=== PATIENT | male | born 1950 | race Caucasian/White ===

== ENCOUNTER 2018-10-23 14:34 | Emergency (ER) | payer MEDICARE, MEDICAID ==
[~2018-10-23] VITALS: Ht 167.6 cm; Wt 81.6 kg
--- NOTE | 2018-10-23 15:11 | NUR ---
Peripheral lab draw done.
--- NOTE | 2018-10-23 15:15 | NUR ---
Doppled pt's dorsalis pedis and pedal pulse with soft weak sounding pulses r/t excessive edema and skin tightness. Incidental find of a very small seed tick embedded on the right lower extremity anterior to medial ankle bone. Pt was unaware of it's presence. Notified the Dr. RN removed tick by applying an alcohol wipe on it and gentle tug. The tick remains alive and appears all intact including its head and disposed of it.
[2018-10-23 16:28] LABS: HEMOGLOBIN 15.2 G/DL (13.3-17.7); WHITE BLOOD COUNT 10.3 10^3/uL (4.3-11.0)
[2018-10-23 16:29] LABS: MEAN PLATELET VOLUME 9.8 FL (7.4-10.4)
[2018-10-23 16:41] LABS: PROTHROMBIN TIME PATIENT 13.3 SEC (12.2-14.7)
[2018-10-23] MEDS ORDERED: CLINDAMYCIN 150 MG (CLEOCIN) CAP PO ONE (16:45)
--- NOTE | 2018-10-23 16:49 | ED Lower Extremity ---
General Chief Complaint: Lower Extremity Stated Complaint: RT LEG SWELLING Nursing Triage Note: Pt to ED ambulatory reporting redness and swelling down right loer extremity with swelling of foot. Pt reports Sx started Sunday. Denies fever and chills Nursing Sepsis Screen: Possible Sepsis Risk Source: patient Exam Limitations: no limitations History of Present Illness Date Seen by Provider: Oct 23, 2018 Time Seen by Provider: 15:00 Initial Comments Patient is a 67-year-old male with history of coronary disease, chronic respiratory disease who presents with right lower extremity swelling extending from foot to distal thigh. Symptoms began 2 days ago and gradually worsening. Denies trauma injury to this region. Leg is swollen, erythematous and tender to palpation. This no skin breakdown, ulcers, weeping or induration. No fluctuance. Dorsal pedal and anterior tibial pulses are present. Patient ice fever chills, nausea vomiting or sweats. Denies history of DVT, PE. He is not currently on anticoagulation therapy. Denies history of cellulitis or MRSA. Onset: yesterday Pain/Injury Location: right leg, right knee, right thigh Modifying Factors: Improves With Rest Allergies and Home Medications Allergies Coded Allergies: No Known Drug Allergies (Unverified , 10/23/18) Patient Home Medication List Home Medication List Reviewed: Yes Review of Systems Constitutional: no symptoms reported Respiratory: no symptoms reported Cardiovascular: no symptoms reported Gastrointestinal: no symptoms reported Genitourinary: no symptoms reported Musculoskeletal: no symptoms reported Skin: see HPI Psychiatric/Neurological: No Symptoms Reported Past Fgrhcwb-Ekshqf-Yzxsml Hx Past Med/Social Hx: Reviewed Nursing Past Med/Soc Hx Patient Social History Alcohol Use: Denies Use Recreational Drug Use: No Smoking Status: Current Everyday Smoker Type Used: Cigarettes Recent Foreign Travel: No Contact w/Someone Who Travel: No Recent Infectious Disease Expo: No Recent Hopitalizations: No Physical Abuse: No Sexual Abuse: No Mistreated: No Fear: No Immunizations Up To Date Tetanus Booster (TDap): Unknown Seasonal Allergies Seasonal Allergies: No Past Medical History Surgeries: Yes Coronary Stent Respiratory: Yes (GENTILE) Chronic Bronchitis, COPD Cardiac: Yes (EF 52% 2018 studies) Coronary Artery Disease, High Cholesterol, Hypertension Neurological: No Genitourinary: No Gastrointestinal: No Musculoskeletal: Yes (Hx unilateral inguinal hernia) Endocrine: Yes Diabetes, Non-Insulin dep HEENT: No Cancer: No Psychosocial: No Integumentary: Yes (erythema and petechiae appearance RLE) Recent Skin Changes Blood Disorders: No Physical Exam Vital Signs Vital Signs - First Documented 10/23/18 14:40 Temp 97.7 Pulse 98 Resp 22 B/P (MAP) 134/65 (88) Pulse Ox 94 O2 Delivery Room Air Capillary Refill : Less Than 3 Seconds Height, Weight, BMI Height: 5'6.00" Weight: 180lbs. oz. 81.677151gm; BMI Method:Stated General Appearance: WD/WN, no apparent distress HEENT: PERRL/EOMI, normal ENT inspection Neck: supple Cardiovascular: normal peripheral pulses, regular rate, rhythm Respiratory: lungs clear, normal breath sounds Gastrointestinal: non tender, soft Legs: right leg pain, right leg soft tissue tenderness, right leg swelling Knees: right knee soft tissue tenderness, right knee swelling Neurologic/Tendon: normal sensation, normal motor functions Neurologic/Psychiatric: pan washer II-XII nml as tested, no motor/sensory deficits, alert, oriented x 3 Skin: rash Lymphatic: inguinal node tender (R) Progress/Results/Core Measures Results/Orders Lab Results Laboratory Tests Test 10/23/18 16:15 Range/Units White Blood Count 10.3 4.3-11.0 10^3/uL Red Blood Count 4.98 4.35-5.85 10^6/uL Hemoglobin 15.2 13.3-17.7 G/DL Hematocrit 46 40-54 % Mean Corpuscular Volume 92 80-99 FL Mean Corpuscular Hemoglobin 31 25-34 PG Mean Corpuscular Hemoglobin Concent 33 32-36 G/DL Red Cell Distribution Width 14.0 10.0-14.5 % Platelet Count 162 130-400 10^3/uL Mean Platelet Volume 9.8 7.4-10.4 FL Prothrombin Time 13.3 12.2-14.7 SEC INR Comment 1.0 0.8-1.4 My Orders Orders - ROBERTO ATWOOD DO Cbc No Diff (10/23/18 15:02) Comprehensive Metabolic Panel (10/23/18 15:02) Creatine Kinase (10/23/18 15:04) Protime With Inr (10/23/18 15:04) Probnp Fs (10/23/18 15:19) Hs C Reactive Protein (10/23/18 15:57) Blood Culture (10/23/18 15:57) Clindamycin Capsule (Cleocin Capsule) (10/23/18 16:45) Vital Signs/I&O 10/23/18 14:40 Temp 97.7 Pulse 98 Resp 22 B/P (MAP) 134/65 (88) Pulse Ox 94 O2 Delivery Room Air Blood Pressure Mean: 88 Departure Communication (Admissions) No evidence of DVT on outpatient US. Rash consistent with cellulitis. Patient afebrile with nl WBC. First dose of antibiotics given in the emergency department. Recommend watchful waiting, empiric treatment and close PCP follow- up. Return partially reviewed. Patient verbalizes understanding and agreement discharge instructions prior to departure. Impression Primary Impression: Cellulitis of right lower leg Disposition: HOME, SELF-CARE Condition: Stable/Unchanged Departure-Patient Inst. Decision time for Depature: 16:50 Patient Instructions: Cellulitis (Skin Infection), Adult (DC) Add. Discharge Instructions: Please keep leg elevated while at rest. Take antibiotics and pain medication as directed. Follow-up with your PCP in one to 2 days for reevaluation. Return to the ED if new or worsening symptoms All discharge instructions reviewed with patient and/or family. Voiced understanding. Scripts Tramadol HCl (Tramadol HCl) 50 Mg Tablet 100 MG PO Q6H PRN for PAIN for 3 Days, #15 TAB 0 Refills Prov: ROBERTO ATWOOD DO 10/23/18 Clindamycin HCl (Clindamycin HCl) 300 Mg Capsule 300 MG PO QID, #40 CAP Prov: ROBERTO ATWOOD DO 10/23/18 ROBERTO ATWOOD DO Oct 23, 2018 16:49
[2018-10-23] MEDS ORDERED: TRAM50TA2 PO (16:52)
[2018-10-23] MEDS ORDERED: CLIN300C11 PO (16:52)
[2018-10-23 16:55] LABS: CHLORIDE 92 MMOL/L (98-107); POTASSIUM 3.8 MMOL/L (3.6-5.0); SODIUM 135 MMOL/L (135-145)
[2018-10-23 16:56] LABS: ALANINE AMINOTRANSFERASE 29 U/L (0-55); ALBUMIN 3.7 GM/DL (3.2-4.5); ALKALINE PHOSPHATASE 102 U/L (40-136); BILIRUBIN,TOTAL 0.6 MG/DL (0.1-1.0); BUN/CREATININE RATIO 20; CALCIUM 9.1 MG/DL (8.5-10.1); CARBON DIOXIDE 28 MMOL/L (21-32); CREATININE SERUM 0.91 MG/DL (0.60-1.30); GFR ESTIMATED > 60; GLUCOSE 107 MG/DL (70-105); TOTAL PROTEIN 7.6 GM/DL (6.4-8.2)
[2018-10-23 17:19] VITALS: BP 131/62
--- NOTE | 2018-10-23 17:19 | NUR ---
Pt discharged to home at this time after review of discharge instructions. Pt verbalizes signs and sx of emergent need to return to ER or to return with any worsening sx and concerns. Pt reassured he will be notified if blood cultures become positive to do follow up on how his well being is if he hadn't returned to ED yet.
[2018-10-24 11:00] LABS: CREATINE KINASE 97 U/L (30-200)
== END 2018-10-23 17:19 | disposition home or self-care (01) ==
LOC: EDUNIT# 14:34 → ER FS 14:36
DX: L03.115 Cellulitis of right lower limb (principal); I25.10 Atherosclerotic heart disease of native coronary artery without angina pectoris; J98.9 Respiratory disorder, unspecified; J44.9 Chronic obstructive pulmonary disease, unspecified; I10 Essential (primary) hypertension; E78.00 Pure hypercholesterolemia, unspecified; E11.9 Type 2 diabetes mellitus without complications; F17.210 Nicotine dependence, cigarettes, uncomplicated; Z95.5 Presence of coronary angioplasty implant and graft
CPT/HCPCS: 36415; 80053; 82550; 83880; 85027; 85610; 86141; 87040

== ENCOUNTER → 2019-09-02 | Outpatient (CLI) | payer MEDICARE, MEDICAID ==
[~2019-09-02] MED LIST: CLIN300C11 PO; TRM50T PO
[2019-09-02 11:50] LABS: BILIRUBIN,TOTAL 0.4 MG/DL (0.1-1.0); BUN/CREATININE RATIO 10; CALCIUM 9.3 MG/DL (8.5-10.1); CARBON DIOXIDE 30 MMOL/L (21-32); CHLORIDE 102 MMOL/L (98-107); GFR ESTIMATED > 60; GLUCOSE 98 MG/DL (70-105); POTASSIUM 4.3 MMOL/L (3.6-5.0); SODIUM 141 MMOL/L (135-145)
[2019-09-02 11:51] LABS: ALANINE AMINOTRANSFERASE 13 U/L (0-55); ALBUMIN 3.9 GM/DL (3.2-4.5); ALKALINE PHOSPHATASE 121 U/L (40-136); TOTAL PROTEIN 6.9 GM/DL (6.4-8.2)
[2019-09-02 15:48] LABS: CHOLESTEROL 191 MG/DL (< 200); HDL CHOLESTEROL 27 MG/DL (40-60); TRIGLYCERIDES 293 MG/DL (<150); VLDL CHOLESTEROL 59 MG/DL (5-40)
== END ==
LOC: LAB FS 11:01
PROVIDERS: ATTEND Family Medicine
DX: I51.9 Heart disease, unspecified (principal)
CPT/HCPCS: 36415; 80053; 80061

== ENCOUNTER 2020-01-16 08:52 | Emergency (ER) | payer MEDICARE, MEDICAID ==
[~2020-01-16] VITALS: Ht 177.8 cm; Wt 99.2 kg
--- NOTE | 2020-01-16 09:07 | ED Respiratory ---
General Stated Complaint: RESP DIST Source: patient, EMS Exam Limitations: clinical condition History of Present Illness Date Seen by Provider: Jan 16, 2020 Time Seen by Provider: 08:50 Initial Comments The patient is a 69-year-old male who presents via EMS for evaluation of respiratory distress. The patient lives alone and was found by EMS to be saturating 70%, diaphoretic, tachycardic, and tripoding. He explained to them that he has a history of CHF. The patient was given topical nitroglycerin and IV Lasix and was placed on oxygen and improved significantly by the time they arrived in this emergency department. The patient denies any fever or chills, contact with anyone known to have coronavirus, loss of taste or smell, abdominal or back pain, chest pain, nausea or vomiting, or diarrhea. He has some pitting edema in his lower extremities. He is alert and oriented 4, somewhat anxious, in moderate respiratory distress upon arrival but no longer tripoding. He is saturating in the low 90s upon his arrival and his heart rate is in the 120-125 range. Timing/Duration: this morning Severity: severe Prior Episodes/Possible Cause: occasional episodes Modifying Factors: Improves With Oxygen (helps), Improves With Rest (helps) Associated Symptoms: shortness of breath Allergies and Home Medications Allergies Coded Allergies: No Known Drug Allergies (Unverified , 10/23/18) Home Medications Clindamycin HCl 300 Mg Capsule, 300 MG PO QID Prescribed by: ROBERTO ATWOOD on 10/23/181651 Tramadol HCl 50 Mg Tablet, 100 MG PO Q6H PRN for PAIN Prescribed by: ROBERTO ATWOOD on 10/23/18 165 Patient Home Medication List Home Medication List Reviewed: Yes Review of Systems Review of Systems Constitutional: no symptoms reported EENTM: no symptoms reported Respiratory: cough, short of breath Cardiovascular: edema Gastrointestinal: no symptoms reported Genitourinary: no symptoms reported Musculoskeletal: no symptoms reported Skin: no symptoms reported Psychiatric/Neurological: No Symptoms Reported Hematologic/Lymphatic: No Symptoms Reported Immunological/Allergic: no symptoms reported All Other Systems Reviewed Negative Unless Noted: Yes Past Jtrdhzd-Kbjent-Mkeqyo Hx Past Med/Social Hx: Reviewed Nursing Past Med/Soc Hx Patient Social History Type Used: Cigarettes Recent Hopitalizations: No Immunizations Up To Date Tetanus Booster (TDap): Unknown Seasonal Allergies Seasonal Allergies: No Past Medical History Surgeries: Yes Coronary Stent Respiratory: Yes (GENTILE) Chronic Bronchitis, COPD Cardiac: Yes (EF 52% 2018 studies) Coronary Artery Disease, High Cholesterol, Hypertension Neurological: No Genitourinary: No Gastrointestinal: No Musculoskeletal: Yes (Hx unilateral inguinal hernia) Endocrine: Yes Diabetes, Non-Insulin dep HEENT: No Cancer: No Psychosocial: No Integumentary: Yes (erythema and petechiae appearance RLE) Recent Skin Changes Blood Disorders: No Physical Exam Vital Signs - First Documented 01/16/20 01/16/20 09:10 09:20 Temp 35.8 Pulse 118 Resp 40 B/P (MAP) 161/74 (103) Pulse Ox 90 O2 Delivery Non Rebreather O2 Flow Rate 15.00 FiO2 60 Capillary Refill : Height: 5'6.00" Weight: 180lbs. oz. 81.880408iv; BMI Method:Stated General Appearance: WD/WN, moderate distress (moderate respiratory distress upon arrival) Eyes: Bilateral Eye Normal Inspection, Bilateral Eye PERRL, Bilateral Eye EOMI HEENT: PERRL/EOMI, pharynx normal Neck: full range of motion, supple Respiratory: chest non-tender; No normal breath sounds, No no respiratory distress; respiratory distress (moderate), crackles, rhonchi Cardiovascular: No no edema; tachycardia, other (3+ pitting edema) Gastrointestinal: normal bowel sounds, non tender, soft Extremities: non-tender, no calf tenderness, normal capillary refill, pedal edema Neurologic/Psychiatric: no motor/sensory deficits, alert, oriented x 3, other (mildly anxious) Skin: normal color, warm/dry Lymphatic: no adenopathy Focused Exam Lactate Level 01/16/20 08:58: Lactic Acid Level 4.98*H Lactic Acid Level Laboratory Tests Test 01/16/20 08:58 Lactic Acid Level 4.98 MMOL/L (0.50-2.00) *H Progress/Results/Core Measures Suspected Sepsis SIRS Temperature: Pulse: Respiratory Rate: Laboratory Tests 01/16/20 08:58: White Blood Count 16.9H Blood Pressure / Mean: 01/16/20 08:58: Lactic Acid Level 4.98*H Laboratory Tests 01/16/20 08:58: Creatinine 0.93, Platelet Count 195, Total Bilirubin 1.1H Results/Orders Lab Results Laboratory Tests Test 01/16/20 08:58 01/16/20 09:12 01/16/20 09:35 Range/Units White Blood Count 16.9 H 4.3-11.0 10^3/uL Red Blood Count 5.38 4.35-5.85 10^6/uL Hemoglobin 16.4 13.3-17.7 G/DL Hematocrit 53 40-54 % Mean Corpuscular Volume 99 80-99 FL Mean Corpuscular Hemoglobin 30 25-34 PG Mean Corpuscular Hemoglobin Concent 31 L 32-36 G/DL Red Cell Distribution Width 13.5 10.0-14.5 % Platelet Count 195 130-400 10^3/uL Mean Platelet Volume 10.4 7.4-10.4 FL Immature Granulocyte % (Auto) 1 % Neutrophils (%) (Auto) 84 H 42-75 % Lymphocytes (%) (Auto) 10 L 12-44 % Monocytes (%) (Auto) 6 0-12 % Eosinophils (%) (Auto) 0 0-10 % Basophils (%) (Auto) 0 0-10 % Neutrophils # (Auto) 14.1 H 1.8-7.8 X 10^3 Lymphocytes # (Auto) 1.6 1.0-4.0 X 10^3 Monocytes # (Auto) 1.0 0.0-1.0 X 10^3 Eosinophils # (Auto) 0.0 0.0-0.3 10^3/uL Basophils # (Auto) 0.0 0.0-0.1 10^3/uL Immature Granulocyte # (Auto) 0.1 0.0-0.1 10^3/uL Neutrophils % (Manual) 83 % Lymphocytes % (Manual) 10 % Monocytes % (Manual) 5 % Eosinophils % (Manual) 0 % Basophils % (Manual) 0 % Metamyelocytes % 0 % Myelocytes % 1 % Band Neutrophils 1 % Sodium Level 139 135-145 MMOL/L Potassium Level 4.4 3.6-5.0 MMOL/L Chloride Level 91 L 98-107 MMOL/L Carbon Dioxide Level 36 H 21-32 MMOL/L Anion Gap 12 5-14 MMOL/L Blood Urea Nitrogen 16 7-18 MG/DL Creatinine 0.93 0.60-1.30 MG/DL Estimat Glomerular Filtration Rate > 60 BUN/Creatinine Ratio 17 Glucose Level 188 H 70-105 MG/DL Lactic Acid Level 4.98 *H 0.50-2.00 MMOL/L Calcium Level 9.5 8.5-10.1 MG/DL Corrected Calcium 9.7 8.5-10.1 MG/DL Magnesium Level 2.0 1.6-2.4 MG/DL Total Bilirubin 1.1 H 0.1-1.0 MG/DL Aspartate Amino Transf (AST/SGOT) 21 5-34 U/L Alanine Aminotransferase (ALT/SGPT) 13 0-55 U/L Alkaline Phosphatase 162 H 40-136 U/L Troponin I 0.44 *H <0.30 NG/ML Pro-B-Type Natriuretic Peptide 5644.0 H <75.0 PG/ML Total Protein 7.2 6.4-8.2 GM/DL Albumin 3.7 3.2-4.5 GM/DL Blood Gas Puncture Site LT RADIAL Blood Gas Patient Temperature 35.8 Arterial Blood pH 7.19 *L 7.37-7.43 Arterial Blood Partial Pressure CO2 113 *H 35-45 MMHG Arterial Blood Partial Pressure O2 73 L 79-93 MMHG Arterial Blood HCO3 43 *H 23-27 MMOL/L Arterial Blood Total CO2 46.7 H 21.0-31.0 MMOL/L Arterial Blood Oxygen Saturation 90 L 94-100 % Arterial Blood Base Excess 10.8 H -2.5-2.5 MMOL/L Victor M Test OK Blood Gas Ventilator Setting NO Blood Gas Inspired Oxygen 60% BIPAP My Orders Orders - KAMI GAMBLE DO Cbc With Automated Diff (01/16/20 08:56) Comprehensive Metabolic Panel (01/16/20 08:56) Blood Culture (01/16/20 08:56) Chest 1 View Ap/Pa Only (01/16/20 08:56) Magnesium (01/16/20 08:56) Ekg Tracing (01/16/20 08:56) O2 (01/16/20 08:56) Ed Iv/Invasive Line Start (01/16/20 08:56) Monitor-Rhythm Ecg Trace Only (01/16/20 08:56) Lactic Acid Analyzer (01/16/20 08:56) Coronavirus Sars-Cov-2 So 2018 (01/16/20 08:56) Troponin I Fs (01/16/20 08:56) Probnp Fs (01/16/20 08:56) Bipap (Bilevel) Set Up (01/16/20 08:56) Arterial Blood Gas (01/16/20 08:56) Wire Inserter (01/16/20 08:56) Continuous Pulse Ox (01/16/20 08:56) Aspirin Chewable Tablet (Baby Aspirin Ch (01/16/20 09:15) Nitroglycerin 0.4 Mg Btl 25's (Nitrostat (01/16/20 09:15) Furosemide Injection (Lasix Injection) (01/16/20 09:15) Manual Differential (01/16/20 08:58) Vancomycin Injection (Vancomycin Injecti (01/16/20 10:00) Piperacillin Sodium/Tazobactam (Zosyn Vi (01/16/20 10:00) Medications Given in ED Current Medications Medications Dose Ordered Sig/Roberto Route Start Time Stop Time Status Last Admin Dose Admin Aspirin 324 mg ONCE ONCE PO 01/16/20 09:15 01/16/20 09:16 DC 01/16/20 09:22 324 MG Furosemide 40 mg ONCE ONCE IVP 01/16/20 09:15 01/16/20 09:16 DC 01/16/20 09:21 40 MG Nitroglycerin 0.4 mg ONCE ONCE SL 01/16/20 09:15 01/16/20 09:16 DC 01/16/20 09:22 0.4 MG Piperacillin Sod/ Tazobactam Sod 4.5 gm/Sodium Chloride 100 ml @ 200 mls/hr ONCE ONCE IV 01/16/20 10:00 01/16/20 10:29 DC 01/16/20 10:07 200 MLS/HR Vancomycin HCl 1000 mg/Sodium Chloride 250 ml @ 250 mls/hr ONCE ONCE IV 01/16/20 10:00 01/16/20 10:59 DC 01/16/20 10:07 250 MLS/HR Vital Signs/I&O 01/16/20 01/16/20 09:10 09:20 Temp 35.8 Pulse 118 Resp 40 B/P (MAP) 161/74 (103) Pulse Ox 90 93 O2 Delivery Non Rebreather NIV Bilevel O2 Flow Rate 15.00 FiO2 60 Capillary Refill : Progress Note : Progress Note @0933 - patient had initially seemed to be doing clinically better shortly after arrival. However after some time passes the patient becomes more somnolent. Family was contacted and specifically discussed the patient's status with the power of trial attorney, Nikita Padilla, who states the patient does not want to be intubated (He is DNR and DNI) and says she is on the way to the hospital with t he paperwork. @0945 - Nikita is now here. She understands the patient is critically ill and reiterates that the patient's preference would be to transfer to [facility] in [place]. @0953 - Other daughter now here, also states transfer to [facility] and is able to see the patient through the room door but because of COVID concerns is not allowed to enter at this time. She states that the patient was admitted to the hospital at [facility] within the last month so the patient will be treated for HCAP. @0956 - Contacted [facility] transfer line who states they will call back shortly. @1030 - I spoke with the ER physician Dr. Dietz at [facility] who stated he wanted to speak with the hospitalist prior to accepting this as they are at capacity with their MedSurg and ICU beds and he does not want the patient to be stranded in the ER without an accepting inpatient physician. I explained to the transfer line and I will recheck to other hospitals to see if anyone else is able to accept him. @1131 - Dr. Mike Ray at [facility], which was agreeable to the family, accepts the patient to the ICU for an admission. The family expresses understanding as to the critical nature of the patient's condition. ECG Comment @0856 - sinus tachycardia, rate of 118, normal axis, no acute ischemic findings noted, no STEMI, reviewed and interpreted by myself Critical Care Note Critical Care Start Time: 10:00 Stop Time: 11:00 Total Time (minutes) 60 Progress Interpretation of lab and imaging results, prevention of respiratory failure, prevention of cardiac failure, BiPAP, discussion with multiple consultants, arrangement for transfer, evaluating response to treatment Departure Impression Primary Impression: HCAP (healthcare-associated pneumonia) Additional Impressions: NSTEMI (non-ST elevated myocardial infarction) Sepsis Acute respiratory failure Disposition: 02 XFER SHT-TRM HOSP Condition: Critical Transfer Transfer Reason: Exceeds level of care Time Spoke to Accepting Phy: 11:[address] Mike Matias at [facility] accepts the patient for transfer to the ICU. Transfer Time: 11:31 Transfer Facility: [facility] Method of Transfer: EMS Departure-Patient Inst. Referrals: [facility] DANIEL MD (PCP/Family) Primary Care Physician KAMI GAMBLE DO Jan 16, 2020 09:07
[2020-01-16] MEDS ORDERED: FUROSEMIDE 40 MG/4 ML INJ (LASIX) IVP ONE (09:15)
[2020-01-16] MEDS ORDERED: NITROGLYCERIN 0.4 MG SL TABS BTL 25'S SL ONE (09:15)
[2020-01-16] MEDS ORDERED: ASPIRIN 81 MG CHEW (CHILDREN'S ASA) PO ONE (09:15)
[2020-01-16 09:16] LABS: HEMATOCRIT 53 % (40-54); HEMOGLOBIN 16.4 G/DL (13.3-17.7); MEAN CORPUSCULAR HEMOGLOBIN 30 PG (25-34); MEAN CORPUSCULAR HGB CONC 31 G/DL (32-36); MEAN CORPUSCULAR VOLUME 99 FL (80-99); MEAN PLATELET VOLUME 10.4 FL (7.4-10.4); PLATELET COUNT 195 10^3/uL (130-400); WHITE BLOOD COUNT 16.9 10^3/uL (4.3-11.0)
[2020-01-16 09:17] LABS: BASOPHILS % (AUTO) 0 % (0-10); EOSINOPHILS % (AUTO) 0 % (0-10); LYMPHOCYTES # (AUTO) 1.6 X 10^3 (1.0-4.0); LYMPHOCYTES % (AUTO) 10 % (12-44); MONOCYTES % (AUTO) 6 % (0-12); NEUTROPHILS # (AUTO) 14.1 X 10^3 (1.8-7.8); NEUTROPHILS % (AUTO) 84 % (42-75)
[2020-01-16 09:22] LABS: ABG PH 7.19 (7.37-7.43)
[2020-01-16 09:23] LABS: ABG PCO2 113 MMHG (35-45); ABG PO2 73 MMHG (79-93)
--- NOTE | 2020-01-16 09:24 | Diagnostic Imaging Report ---
EXAMINATION: Chest 1 view HISTORY: resp distress COMPARISON: 02/09/2011 FINDINGS: There are bilateral interstitial and airspace opacities, right greater than left with a small right pleural effusion. No pneumothorax. Heart size is normal. There is right lower lobe atelectasis. IMPRESSION: 1. Bilateral interstitial and airspace opacities, right greater than left and moderate in severity with small right pleural effusion. Findings most suggestive of pneumonia. Dictated by: Dictated on workstation # [id number]
[2020-01-16 09:25] LABS: ABG BASE EXCESS 10.8 MMOL/L (-2.5-2.5); ABG OXYGEN SATURATION 90 % (94-100); ABG TCO2 46.7 MMOL/L (21.0-31.0); ALLENS TEST OK; INSPIRED O2 60% BIPAP; PATIENT TEMP 35.8; VENTILATOR NO
[2020-01-16 09:43] LABS: ALKALINE PHOSPHATASE 162 U/L (40-136); BILIRUBIN,TOTAL 1.1 MG/DL (0.1-1.0); BUN/CREATININE RATIO 17; CALCIUM 9.5 MG/DL (8.5-10.1); CARBON DIOXIDE 36 MMOL/L (21-32); CHLORIDE 91 MMOL/L (98-107); CREATININE SERUM 0.93 MG/DL (0.60-1.30); GFR ESTIMATED > 60; GLUCOSE 188 MG/DL (70-105); POTASSIUM 4.4 MMOL/L (3.6-5.0); SODIUM 139 MMOL/L (135-145)
[2020-01-16 09:44] LABS: ALANINE AMINOTRANSFERASE 13 U/L (0-55)
[2020-01-16 09:45] LABS: ALBUMIN 3.7 GM/DL (3.2-4.5); TOTAL PROTEIN 7.2 GM/DL (6.4-8.2)
--- NOTE | 2020-01-16 09:50 | NUR ---
Spoke with Nikita Summers, patient's daughter and DPOA about patient's wishes. Daughter states patient does NOT want to be intubated. Copy of DPOA and Advance Directives obtained at this time. Dr. Gabriel speaking with patient's family about plan of care.
--- NOTE | 2020-01-16 09:59 | NUR ---
Family contact info: Shelton Clements - daughter - DPOA - [phone] Jenae Warren - daughter - [phone]
[2020-01-16] MEDS ORDERED: VANCOMYCIN INJECTION 1,000 MG in NS (IVPB) 250 ML IV ONE (10:00)
[2020-01-16] MEDS ORDERED: PIPERACILLIN SODIUM/TAZOBACTAM 4.5 GM in NS (IVPB) 100 ML IV ONE (10:00)
[2020-01-16 10:07] LABS: BAND NEUTROPHILS 1 %; BASOPHILS % (MANUAL) 0 %; EOSINOPHILS % (MANUAL) 0 %; LYMPHOCYTES % (MANUAL) 10 %; MONOCYTES % (MANUAL) 5 %; NEUTROPHILS % (MANUAL) 83 %
[2020-01-16 10:08] LABS: METAMYELOCYTES % 0 %; MYELOCYTES % 1 %
[2020-01-16 13:00] VITALS: BP 139/78
--- NOTE | 2020-01-16 15:46 | NUR ---
Patient's daughter called, informed that patient's pants are here. She states she will have someone come pick them up.
== END 2020-01-16 12:55 | disposition short-term general hospital (02) ==
LOC: EDUNIT# 08:52 → ER FS 08:53
DX: J18.9 Pneumonia, unspecified organism (principal); I21.4 Non-ST elevation (NSTEMI) myocardial infarction; J96.00 Acute respiratory failure, unspecified whether with hypoxia or hypercapnia; A41.9 Sepsis, unspecified organism; F41.9 Anxiety disorder, unspecified; Z95.5 Presence of coronary angioplasty implant and graft
CPT/HCPCS: 36415; 51702; 71045; 80053; 82805; 83605 ×2; 83735; 83880; 84484; 85007; 85027; 87040; 93005; 93041; 94640; 99291; U0002; 87635

== ENCOUNTER → 2020-02-02 | Outpatient (CLI) | payer MEDICARE, MEDICAID ==
[2020-02-02 14:41] LABS: BUN/CREATININE RATIO 12; CALCIUM 9.5 MG/DL (8.5-10.1); CARBON DIOXIDE 38 MMOL/L (21-32); CHLORIDE 92 MMOL/L (98-107); CREATININE SERUM 0.98 MG/DL (0.60-1.30); GFR ESTIMATED > 60; GLUCOSE 238 MG/DL (70-105); SODIUM 138 MMOL/L (135-145)
== END ==
LOC: LAB FS 13:51
PROVIDERS: ATTEND Family Medicine
DX: I50.9 Heart failure, unspecified (principal)
CPT/HCPCS: 36415; 80048

== ENCOUNTER 2020-02-21 10:25 | Emergency (ER) | payer MEDICARE, MEDICAID ==
[~2020-02-21] VITALS: Ht 165 cm; Wt 110.0 kg
--- NOTE | 2020-02-21 10:49 | ED Head Injury ---
General Chief Complaint: Laceration Stated Complaint: FALL, HEAD LACERATION Source: patient Exam Limitations: no limitations History of Present Illness Date Seen by Provider: Feb 21, 2020 Time Seen by Provider: 10:40 Initial Comments Patient's a 69-year-old had a ground-level fall tripped over his oxygen tubing and sustained a laceration to the right scalp with a large cephalohematoma unknown loss of consciousness. Patient denies any pain at this time no changed his breathing although he has had some increased edema in his extremities. It is complicated with the patient is on Plavix is over [address] imaging. Location: frontal Method of Injury: fell Loss of Consciousness: brief (seconds) Associated Systoms: Denies Symptoms Allergies and Home Medications Allergies Coded Allergies: No Known Drug Allergies (Unverified , 10/23/18) Home Medications Clindamycin HCl 300 Mg Capsule, 300 MG PO QID Prescribed by: ROBERTO ATWOOD on 10/23/181651 Tramadol HCl 50 Mg Tablet, 100 MG PO Q6H PRN for PAIN Prescribed by: ROBERTO ATWOOD on 10/23/18 165 Patient Home Medication List Home Medication List Reviewed: Yes Review of Systems Review of Systems Constitutional: No chills, No dizziness, No fever; weakness Eyes: Denies Blindness, Denies Blurred Vision, Denies Drainage Ears, Nose, Mouth, Throat: denies ear pain, denies ear discharge, denies nose pain Respiratory: cough, dyspnea on exertion, short of breath, other (chronically oxygen dependent for COPD and CHF still smokes half a pack a day) Cardiovascular: see HPI Gastrointestinal: no symptoms reported Genitourinary: no symptoms reported Musculoskeletal: no symptoms reported Skin: no symptoms reported Psychiatric/Neurological: No Symptoms Reported Past Anyqkur-Wurhpj-Fiujfm Hx Past Med/Social Hx: Reviewed Nursing Past Med/Soc Hx Patient Social History Type Used: Cigarettes 2nd Hand Smoke Exposure: No Recent Hopitalizations: No Immunizations Up To Date Tetanus Booster (TDap): Unknown Seasonal Allergies Seasonal Allergies: No Past Medical History Surgeries: Yes Coronary Stent Respiratory: Yes (GENTILE) Chronic Bronchitis, COPD Cardiac: Yes (EF 52% 2018 studies) Coronary Artery Disease, High Cholesterol, Hypertension Neurological: No Genitourinary: No Gastrointestinal: No Musculoskeletal: Yes (Hx unilateral inguinal hernia) Endocrine: Yes Diabetes, Non-Insulin dep HEENT: No Cancer: No Psychosocial: No Integumentary: Yes (erythema and petechiae appearance RLE) Recent Skin Changes Blood Disorders: No Physical Exam Vital Signs Vital Signs - First Documented 02/21/20 10:43 Temp 36.3 Pulse 85 Resp 18 B/P (MAP) 152/75 (100) Pulse Ox 93 O2 Delivery Nasal Cannula O2 Flow Rate 4.00 Capillary Refill : Height, Weight, BMI Height: 5'6.00" Weight: 180lbs. oz. [id number]; 31.00 BMI Method:Stated General Appearance: WD/WN, no apparent distress, other (holding a bandage to the right scalp to control bleeding) HEENT: PERRL/EOMI, normal ENT inspection Neck: non-tender, full range of motion, supple Cardiovascular: regular rate, rhythm; No no edema (3-4+ edema bilaterally) Respiratory: chest non-tender, decreased breath sounds, crackles, rales, rho nchi Gastrointestinal: normal bowel sounds, non tender, other (somewhat protuberant soft no evidence no evidence of obstruction) Back: normal inspection Extremities: No calf tenderness; pedal edema, swelling Psychiatric: alert Crainal Nerves: normal hearing, normal speech, PERRL, abnormal eye position Skin: normal color, warm/dry Nichole Coma Score Best Eye Response: (4) Open Spontaneously Best Verbal Response: (5) Oriented Best Motor Response: (6) Obeys Commands Procedures/Interventions Wound Location: Face (right forehead) Wound Length (cm): 3 Wound's Depth, Shape: linear, sub Q Wound Explored: no foreign body removed Other Closure Supply: Steri Strip 1/2", Mastisol, Wound Adhesive Progress/Results/Core Measures Results/Orders My Orders Orders - JOSE JUAN DUVALL DO Ct Head Wo (02/21/20 10:56) Vital Signs/I&O 02/21/20 10:43 Temp 36.3 Pulse 85 Resp 18 B/P (MAP) 152/75 (100) Pulse Ox 93 O2 Delivery Nasal Cannula O2 Flow Rate 4.00 Progress Progress Note : Progress Note Patient is a ground-level fall on anticoagulants with a substantial laceration to the forehead of the plan will be CT imaging wound care discharge patient in follow-up. Departure Communication (Admissions) CT scan showed no intracranial pathology. Decision-making the patient declined suturing wound was closed with Steri-Strips and Dermabond. Impression Primary Impression: Fall Qualified Codes: W19.XXXA - Unspecified fall, initial encounter Additional Impression: Forehead laceration Qualified Codes: S01.81XA - Laceration without foreign body of other part of head, initial encounter Disposition: HOME, SELF-CARE Condition: Improved Departure-Patient Inst. Referrals: [facility] DANIEL MD (PCP/Family) Primary Care Physician JOSE JUAN DUVALL DO Feb 21, 2020 10:49
--- NOTE | 2020-02-21 11:20 | Diagnostic Imaging Report ---
PROCEDURE: CT head without contrast. TECHNIQUE: Multiple contiguous axial images were obtained through the brain without the use of intravenous contrast. Auto Exposure Controls were utilized during the CT exam to meet ALARA standards for radiation dose reduction. INDICATION: Fall striking the forehead. 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 This is entirely fatty in its composition and itself is benign and incidental. There does appear to be some mild right-sided preseptal periorbital soft tissue swelling. No hemo-sinus. There is opacification of the partially visualized right maxillary sinus by low-density material presumed chronic. No demonstrated air-fluid level. No post septal or retrobulbar hematoma. The underlying calvarium appeared intact and there is no intracerebral hemorrhage. There are no acute extra-axial fluid collections. The basilar cisterns are patent and there is no sulcal effacement. IMPRESSION: Soft tissue swelling. No appreciable fracture or demonstrated hemo-sinus. No intracranial hemorrhage. Superimposed incidental subcutaneous lipoma in the right frontal convexity. Dictated by: Dictated on workstation # [id number]
[2020-02-21 11:40] VITALS: BP 137/68
== END 2020-02-21 11:40 | disposition home or self-care (01) ==
LOC: EDUNIT# 10:25 → ER FS 10:26
DX: S01.81XA Laceration without foreign body of other part of head, initial encounter (principal); I10 Essential (primary) hypertension; J44.9 Chronic obstructive pulmonary disease, unspecified; R40.2360 Coma scale, best motor response, obeys commands, unspecified time; R40.2140 Coma scale, eyes open, spontaneous, unspecified time; R40.2250 Coma scale, best verbal response, oriented, unspecified time; Z99.81 Dependence on supplemental oxygen; Z95.5 Presence of coronary angioplasty implant and graft; F17.210 Nicotine dependence, cigarettes, uncomplicated; W01.0XXA Fall on same level from slipping, tripping and stumbling without subsequent striking against object, initial encounter
CPT/HCPCS: 12011; 70450

== ENCOUNTER 2020-02-22 19:23 | Emergency (ER) | payer MEDICARE, MEDICAID ==
[2020-02-22 19:52] LABS: HEMATOCRIT 40 % (40-54); HEMOGLOBIN 12.8 G/DL (13.3-17.7); MEAN CORPUSCULAR HEMOGLOBIN 30 PG (25-34); MEAN CORPUSCULAR HGB CONC 32 G/DL (32-36); MEAN CORPUSCULAR VOLUME 94 FL (80-99); MEAN PLATELET VOLUME 9.5 FL (7.4-10.4); PLATELET COUNT 208 10^3/uL (130-400); WHITE BLOOD COUNT 12.1 10^3/uL (4.3-11.0)
[2020-02-22 19:53] LABS: BASOPHILS % (AUTO) 0 % (0-10); EOSINOPHILS % (AUTO) 0 % (0-10); LYMPHOCYTES # (AUTO) 1.6 X 10^3 (1.0-4.0); LYMPHOCYTES % (AUTO) 13 % (12-44); MONOCYTES # (AUTO) 0.6 X 10^3 (0.0-1.0); MONOCYTES % (AUTO) 5 % (0-12); NEUTROPHILS # (AUTO) 9.9 X 10^3 (1.8-7.8); NEUTROPHILS % (AUTO) 81 % (42-75)
[2020-02-22] MEDS ORDERED: FUROSEMIDE 40 MG/4 ML INJ (LASIX) IVP ONE (20:00)
[2020-02-22] MEDS ORDERED: RT-ALBUTEROL SULF 2.5 MG/3 ML PRE-MIX VIAL INH ONE (20:00)
--- NOTE | 2020-02-22 20:04 | Diagnostic Imaging Report ---
INDICATION: Short of breath. EXAMINATION: Portable chest. FINDINGS: Normal heart size and vascularity. The lungs are clear. There is no effusion or pneumothorax. IMPRESSION: No acute abnormality is seen. The infiltrates seen on the study from 01/16/2020 have cleared. Dictated by: Dictated on workstation # [id number]
--- NOTE | 2020-02-22 20:06 | ED Respiratory ---
General Chief Complaint: Respiratory Problems Stated Complaint: BREATHING PROBLEMS/BILATERL LEG SWELLING Source: patient, family Exam Limitations: no limitations History of Present Illness Date Seen by Provider: Feb 22, 2020 Time Seen by Provider: 19:30 Initial Comments Patient is a 69-year-old male who presents to the emergency department today with a chief complaint of shortness of breath and an episode of confusion today. Patient has a long history of COPD, oxygen dependent at home at 4 L per nasal cannula, congestive heart failure as well. Patient has his daughter with him today who also contributes to the history. Patient's daughter states that yesterday and she noticed that he was a little bit off and today it was much worse when she came to visit him his oxygen saturations were down in the 60s. She cranked his oxygen up. He had some improvement. Patient states that he was "hallucinating" at home today. He denies any chest pain, abdominal pain. He d enies any headache. He did have a mechanical trip and fall yesterday hitting his head. He was seen in the emergency department and had a CAT scan of his head done at that time. He suffered a laceration to his forehead and a black eye. Patient states that is not really bothering him. He does have quite significant bilateral lower extremity edema in his legs. He states that he takes a diuretic, Lasix 40 mg only once a day. Patient states at the time of my evaluation he is feeling much better. Of note his sats are 90% on 4 L of oxygen. He is in no respiratory distress but does sound a little dyspneic when he talks. All other review of systems reviewed and negative except as stated above. Timing/Duration: just prior to arrival Prior Episodes/Possible Cause: occasional episodes Modifying Factors: Improves With Albuterol Inhaler Associated Symptoms: denies symptoms Allergies and Home Medications Allergies Coded Allergies: No Known Drug Allergies (Unverified , 10/23/18) Home Medications Clindamycin HCl 300 Mg Capsule, 300 MG PO QID Prescribed by: ROBERTO ATWOOD on 10/23/181651 Tramadol HCl 50 Mg Tablet, 100 MG PO Q6H PRN for PAIN Prescribed by: ROBERTO ATWOOD on 10/23/181651 Patient Home Medication List Home Medication List Reviewed: Yes Review of Systems Review of Systems Constitutional: no symptoms reported EENTM: no symptoms reported Respiratory: dyspnea on exertion, orthopnea, short of breath, wheezing Cardiovascular: no symptoms reported; No chest pain; edema; No palpitations, No syncope Gastrointestinal: no symptoms reported Genitourinary: decreased output (Decreased output today only) Musculoskeletal: no symptoms reported Skin: no symptoms reported Psychiatric/Neurological: Anxiety, Other (Confusion today) All Other Systems Reviewed Negative Unless Noted: Yes Past Hesfisx-Mdcqsx-Edkwuc Hx Patient Social History Alcohol Use: Denies Use Recreational Drug Use: No Smoking Status: Current Everyday Smoker Type Used: Cigarettes 2nd Hand Smoke Exposure: No Recent Foreign Travel: No Contact w/Someone Who Travel: No Recent Hopitalizations: No Physical Abuse: No Sexual Abuse: No Immunizations Up To Date Tetanus Booster (TDap): Unknown Seasonal Allergies Seasonal Allergies: No Past Medical History Surgeries: Yes Coronary Stent Respiratory: Yes (GENTILE) Chronic Bronchitis, COPD Cardiac: Yes (EF 52% 2018 studies) Coronary Artery Disease, High Cholesterol, Hypertension Neurological: No Genitourinary: No Gastrointestinal: No Musculoskeletal: Yes (Hx unilateral inguinal hernia) Endocrine: Yes Diabetes, Non-Insulin dep HEENT: No Cancer: No Psychosocial: No Integumentary: Yes (erythema and petechiae appearance RLE) Recent Skin Changes Blood Disorders: No Physical Exam Vital Signs - First Documented 02/22/20 19:30 Temp 36.8 Pulse 93 Resp 20 B/P (MAP) 163/81 (108) Pulse Ox 95 O2 Delivery Nasal Cannula O2 Flow Rate 5.00 Capillary Refill : Height: 5'6.00" Weight: 180lbs. oz. [id number]; 40.00 BMI Method:Stated General Appearance: WD/WN, mild distress Eyes: Bilateral Eye Normal Inspection, Bilateral Eye PERRL, Bilateral Eye EOMI HEENT: PERRL/EOMI, other (Contusion noted to right upper and lower eyelid, healing wound with surrounding ecchymosis noted to the right upper forehead) Neck: full range of motion Respiratory: no accessory muscle use, decreased breath sounds, wheezing (Bilateral expiratory wheezes noted diminished air movement throughout) Cardiovascular: regular rate, rhythm, other (3+ pitting edema bilateral lower extremities) Gastrointestinal: non tender, soft Extremities: non-tender, normal inspection, normal capillary refill, pedal edema Neurologic/Psychiatric: alert, normal mood/affect, oriented x 3 Skin: normal color, warm/dry Progress/Results/Core Measures Suspected Sepsis SIRS Temperature: Pulse: Respiratory Rate: Laboratory Tests 02/22/20 19:41: White Blood Count 12.1H Blood Pressure / Mean: Laboratory Tests 02/22/20 19:41: Creatinine 0.95, Platelet Count 208 Results/Orders Lab Results Laboratory Tests Test 02/22/20 19:41 Range/Units White Blood Count 12.1 H 4.3-11.0 10^3/uL Red Blood Count 4.23 L 4.35-5.85 10^6/uL Hemoglobin 12.8 L 13.3-17.7 G/DL Hematocrit 40 40-54 % Mean Corpuscular Volume 94 80-99 FL Mean Corpuscular Hemoglobin 30 25-34 PG Mean Corpuscular Hemoglobin Concent 32 32-36 G/DL Red Cell Distribution Width 14.0 10.0-14.5 % Platelet Count 208 130-400 10^3/uL Mean Platelet Volume 9.5 7.4-10.4 FL Immature Granulocyte % (Auto) 1 % Neutrophils (%) (Auto) 81 H 42-75 % Lymphocytes (%) (Auto) 13 12-44 % Monocytes (%) (Auto) 5 0-12 % Eosinophils (%) (Auto) 0 0-10 % Basophils (%) (Auto) 0 0-10 % Neutrophils # (Auto) 9.9 H 1.8-7.8 X 10^3 Lymphocytes # (Auto) 1.6 1.0-4.0 X 10^3 Monocytes # (Auto) 0.6 0.0-1.0 X 10^3 Eosinophils # (Auto) 0.0 0.0-0.3 10^3/uL Basophils # (Auto) 0.0 0.0-0.1 10^3/uL Immature Granulocyte # (Auto) 0.1 0.0-0.1 10^3/uL Sodium Level 136 135-145 MMOL/L Potassium Level 4.1 3.6-5.0 MMOL/L Chloride Level 89 L 98-107 MMOL/L Carbon Dioxide Level 39 H 21-32 MMOL/L Anion Gap 8 5-14 MMOL/L Blood Urea Nitrogen 16 7-18 MG/DL Creatinine 0.95 0.60-1.30 MG/DL Estimat Glomerular Filtration Rate > 60 BUN/Creatinine Ratio 17 Glucose Level 180 H 70-105 MG/DL Calcium Level 9.4 8.5-10.1 MG/DL Troponin I < 0.30 <0.30 NG/ML Pro-B-Type Natriuretic Peptide 1764.0 H <75.0 PG/ML My Orders Orders - EJ SHELLEY MD Chest 1 View Ap/Pa Only (02/22/20 19:45) Cbc With Automated Diff (02/22/20 19:45) Basic Metabolic Panel (02/22/20:45) Troponin I Fs (02/22/20:45) Ekg Tracing (02/22/20:45) Monitor-Rhythm Ecg Trace Only (02/22/20:45) Ed Iv/Invasive Line Start (02/22/20:45) Probnp Fs (02/22/20:45) Albuterol Pre-Mix Nebs (Rt) (Proventil (02/22/20 20:00) Svn Small Volume Nebulizer (02/22/20 19:48) Creatine Kinase Mb (02/22/20 19:41) Furosemide Injection (Lasix Injection) (02/22/20 20:00) Medications Given in ED Current Medications Medications Dose Ordered Sig/Roberto Route Start Time Stop Time Status Last Admin Dose Admin Albuterol Sulfate 2.5 mg ONCE ONCE INH 02/22/20 20:00 02/22/20 20:01 DC 02/22/20 19:53 2.5 MG Furosemide 40 mg ONCE ONCE IVP 02/22/20 20:00 02/22/20 20:01 DC 02/22/20 20:11 40 MG Vital Signs/I&O 02/22/20 19:30 Temp 36.8 Pulse 93 Resp 20 B/P (MAP) 163/81 (108) Pulse Ox 95 O2 Delivery Nasal Cannula O2 Flow Rate 5.00 Capillary Refill : Progress Note : Time: 20:08 Progress Note 69-year-old male presents to the emergency department today with a chief complaint of difficulty breathing. Patient states that he was confused earlier today and his daughter reports that his oxygen saturations on his oxygen at 4 L per nasal cannula was in the 60s. Patient states he has had diminished urine output throughout the day he has not taken his diuretic yet today. Patient has a long history of COPD and congestive heart failure. Patient is noted to be in very mild respiratory distress dyspneic with speech. He states that he does not actually feel bad and as a matter fact feels much improved on arrival to the emergency department. Evaluation today includes a physical exam, EKG, chest x- ray, CBC, basic metabolic panel, serum troponin, proBNP. Studies are pending at the time of this dictation. The patient's been treated in the emergency depa rtment with 40 mg of IV Lasix and a dose of nebulized albuterol. re-evaluated after albuterol and he states he feels no different, but his lung sounds are improved. 2049 Labs reviewed; CBC WNL; chem shows a CO2 of 39, chloride 89, BUN and Creatinine good; BNP is elevated and troponin is negative. On further discussion with the patient he is already needing to urinate from his extra dose of Lasix. He tells me that he does not use his albuterol MDI on a scheduled basis, he states that he hardly ever uses it. I will recommend that the patient use his inhaler 2 puffs twice daily over the next several days. He has appointments with his care program director as well as his primary care doctor coming up in the next week to week and a half. I also had a long discussion with the patient's daughter regarding his presentation, lab studies obtained and plan of care. She is considering assisted living for him. Patient feels back to his baseline. No clinical or objective findings to warrant further studies here in the emergency department or admission. Patient will be discharged to home with continuation of his routine home medications with the addition of a scheduled dosing of his albuterol. He verbalizes understanding of the plan of care he is comfortable with plan of care all questions are sought and answered and he is stable for discharge. Departure Impression Primary Impression: COPD exacerbation Additional Impressions: Pedal edema Congestive heart failure (CHF) Qualified Codes: I50.9 - Heart failure, unspecified Disposition: HOME, SELF-CARE Condition: Stable Departure-Patient Inst. Decision time for Depature: 21:12 Referrals: [facility] DANIEL MD (PCP/Family) Primary Care Physician Patient Instructions: Exacerbation of COPD Add. Discharge Instructions: Use your inhalers at least twice daily. If you notice your oxygen saturations decreasing below 88 use your inhaler and increase your oxygen. Please call your primary care doctor's office for a follow-up appointment. Keep your scheduled follow-up with your lung doctor in March. Return to the emergency department for any worsening symptoms of shortness of breath, swelling, chest pain or any other emergent concerning symptoms. EJ SHELLEY MD Feb 22, 2020 20:06
[2020-02-22 20:12] LABS: BUN/CREATININE RATIO 17; CALCIUM 9.4 MG/DL (8.5-10.1); CARBON DIOXIDE 39 MMOL/L (21-32); CHLORIDE 89 MMOL/L (98-107); CREATININE SERUM 0.95 MG/DL (0.60-1.30); GFR ESTIMATED > 60; GLUCOSE 180 MG/DL (70-105); POTASSIUM 4.1 MMOL/L (3.6-5.0); SODIUM 136 MMOL/L (135-145)
[2020-02-22 21:10] VITALS: BP 142/53
[2020-02-22] MEDS ORDERED: methylPREDNISolone 125 MG (Solu-MEDROL) VIAL IVP ONE (21:30)
[2020-02-22] MEDS ORDERED: methylPREDNISolone 125 MG (Solu-MEDROL) VIAL IM ONE (21:30)
== END 2020-02-22 21:25 | disposition home or self-care (01) ==
LOC: EDUNIT# 19:23 → ER FS 19:26
DX: S00.11XA Contusion of right eyelid and periocular area, initial encounter (principal); S00.83XA Contusion of other part of head, initial encounter; I50.9 Heart failure, unspecified; J44.1 Chronic obstructive pulmonary disease with (acute) exacerbation; I10 Essential (primary) hypertension; Z99.81 Dependence on supplemental oxygen; Z95.5 Presence of coronary angioplasty implant and graft; F17.210 Nicotine dependence, cigarettes, uncomplicated; W01.10XA Fall on same level from slipping, tripping and stumbling with subsequent striking against unspecified object, initial encounter
CPT/HCPCS: 36415; 71045; 80048; 82553; 83880; 84484; 85025; 93005; 93041